=== PATIENT | female | born 1930 | race Caucasian/White ===

== ENCOUNTER → 2016-08-21 | Outpatient (CLI) | payer MEDICARE ==
[~2016-08-21] MED LIST: ASPIRIN81 M1 PO; BIOTIN1000 MC1 PO; CELEBREX100 MG PO; CRESTOR10 M1 PO; LISINOPRIL40 MG PO; METFORMIN500 MG PO; METHOTREXATE2.5 M1 PO; NATURE'S BLEND F1 MG PO; VITAMIN D31000 IU PO; ZANTAC 150150 MG PO
[2016-08-21 13:12] LABS: BASO % 0.3 % (0.0-1.0); EOS # 0.2 10*3/uL (0.0-0.4); HEMATOCRIT 37.3 % (37.0-47.0); LYMPH # 2.2 10*3/uL (1.3-4.4); LYMPH % 27.3 % (27.0-41.0); MEAN CELL VOLUME 92.1 fl (81.0-99.0); MEAN CORPUSCULAR HGB 29.6 pg (27.0-31.0); MEAN CORPUSCULAR HGB CONC 32.2 g/dl (33.0-37.0); MONO # 0.4 10*3/uL (0.1-1.0); MONO % 5.5 % (3.0-9.0); NEUT # 5.1 10*3/uL (2.3-7.9); NEUT % 63.6 % (47.0-73.0); PLATELET COUNT AUTOMATED 224 10*3/uL (130-400); RED BLOOD COUNT 4.05 10*6/uL (4.10-5.10); RED CELL DISTRI WIDTH 14.6 % (0-14.5)
== END | disposition home or self-care (01) ==
LOC: LAB 11:02
PROVIDERS: Obstetrics & Gynecology
DX: N81.11 Cystocele, midline (principal); N81.6 Rectocele; N81.2 Incomplete uterovaginal prolapse; R33.9 Retention of urine, unspecified

== ENCOUNTER 2016-08-28 03:39 | Inpatient (IN) | payer MEDICARE ==
[~2016-08-28] VITALS: Ht 160 cm; Wt 81.2 kg
[2016-08-28] VITALS (8 sets, daily range): BP systolic 108–160; BP diastolic 48–89
--- NOTE | ~2016-08-28 | O ---
[place], [place] OPERATIVE NOTE NAME: HERMAN YATES UNIT #: [id number] ROOM: 529 DOCTOR: HERNESTO VILCHIS MD BIRTHDATE: [birth year] DOS: 08/28/2016 PREOPERATIVE DIAGNOSES: Symptomatic glbyua-ug-pisgw degree cystocele and associated uterine prolapse, introital laxity and urinary retention. POSTOPERATIVE DIAGNOSES: Symptomatic tlbjai-wn-gszly degree cystocele and associated uterine prolapse, introital laxity and urinary retention. PROCEDURE: TVH A and P repair, uterosacral plication and right sacrospinous fixation with perineoplasty. SURGEON: Dr. Hernesto Vilchis and Dr. Spencer. ANESTHESIA: General. ESTIMATED BLOOD LOSS: 50-75 mL. REPLACEMENTS: IV fluids, Ancef, and Ofirmev, as well as Toradol at the end of the case. COMPLICATIONS: There were no complications. CONDITION: The patient's status to recovery was stable. OPERATIVE SUMMARY: The patient was taken to the operating room in supine position, general anesthesia, endotracheal intubation, lithotomy position, prepped and draped in routine manner. Solares was placed to straight drain. Our exam prior to initiating the surgery revealed that the primary laxity was a large cystocele and uterine descensus, the posterior vagina was not any more relaxed and a first degree rectocele. Once we had performed our examination, we grasped the cervix, injected it in a circumferential manner with 1% lidocaine with epinephrine and then made a circumferential incision displaced the bladder anteriorly and entered the anterior cul-de-sac without complication. We displaced the rectum posteriorly and entered the posterior cul-de-sac. Uterosacral ligaments and cardinal ligament pedicles were created and ligated with 0 Vicryl in transfixing manner followed by use of the LigaSure device with successive pedicles bilaterally, freeing up the uterus and cervix. We examined the internal pedicles carefully and noted them to be hemostatic. One fallopian tube was noted and was normal. The ovaries were not visualized or palpable. We then noting the stable sponge and instrument count, plicated the uterosacral ligaments with 2-0 Ethibond two interrupted sutures and then we reperitonealized with 2-0 Vicryl in a pursestring manner. We then closed the vaginal cuff with a series of interrupted 0 Vicryl mtfwdg-vz-frfoc sutures. We then made an incision perpendicular to the vaginal cuff incision up to a point just inferior to the urethral meatus and dissected the bladder and the vesicovaginal fascia free from the vaginal mucosa. We then with several layers of interrupted 2-0 Vicryl sutures, resupported the urethrovesical neck and the body of the bladder. We excised excess anterior vaginal mucosa and closed the anterior incision with a running locking 2-0 Vicryl suture. We then removed a small triangular shaped portion of essentially skin over the perineal area and then made an incision [place], [place] OPERATIVE NOTE NAME: HERMAN YATES UNIT #: [id number] ROOM: 529 DOCTOR: HERNESTO IVLCHIS MD BIRTHDATE: [birth year] perpendicular to this about two-thirds of the way up to the posterior vagina, again noting that the laxity posteriorly was much less than the one that had been noted anteriorly. Rectum and the rectovaginal fascia were dissected free from the vaginal mucosa and then we dissected over to the right ischial spine and placed a slightly more proximally an 0 Ethibond suture and affixed this to the top of the vagina bilaterally. With several interrupted 2-0 Vicryl sutures, we obliterated the remaining portion of the rectocele, then removed excess posterior vaginal mucosa and closed this incision down to the introitus with a running locking 2-0 Vicryl suture. We then using a cornelio type method for sacrospinous fixation suture, elevated the vagina very nicely. Once this was completed, we then completed the closure of the posterior vaginal midline incision to the introitus. We closed her perineal defect in 2 layers with 2-0 Vicryl as one would close a very superficial second degree midline episiotomy. Once these were all approximated, we examined the vaginal operative sites and noted excellent hemostasis. We placed Premarin vaginal cream and we placed one-inch iodoform packing. We then examined the rectum and noted it to be intact and the sacrospinous fixation suture in place. We then cleaned the patient off, took her out of lithotomy position, awakened, extubated, and transferred to recovery in satisfactory condition having had adequate and clear urine output throughout the case, having had stable vital signs, good hemostasis, and stable sponge and instrument count. HERNESTO VILCHIS MD CM:OPRECORD:OPERATIVE NOTE 1204 [id number] HERNESTO VILCHIS MD 08/28/16 1308 interface
--- NOTE | ~2016-08-28 | WRIGHTHP ---
[place], [place] PATIENT HISTORY AND PHYSICAL EXAM [id number] UN[facility] #: [id number] ROOM: DOCTOR: HERNESTO VILCHIS MD BIRTHDATE: [birth year] DOS: 08/28/2016 HISTORY OF PRESENT ILLNESS: This is a delightful 86-year-old white female who was seen 08/15/2016 following a visit for discussion in December 2015 per Surgery for vaginal repair and bladder repair. The patient had been seen as I said in December 2015 for vesicouterine prolapse. At that time, she had too much introital laxity to retain a pessary although we did try. She had come in then on 08/15 again complaining of similar complaints, but stating that these symptoms were worsening and she was having increasing urinary retention with trouble emptying the bladder. She is also noticing increased pressure in the pelvis and more protrusion for pelvic organs per her introitus. We extensively discussed the anatomic changes, her age, surgical correction, recovery, with risks, benefits, indications, potential complications, and alternatives. She did state understanding and stated that she did want to proceed with surgery. I made it very clear to her that there was absolutely no pressure to have anything done, but the patient was quite adamant about proceeding with repair. The patient stated that she just could not keep this up and wanted to have the problem fixed. Therefore, again TVH, A and P repair, uterosacral plication, right sacrospinous fixation and perineoplasty were reviewed, understanding stated and consent signed. PAST HISTORY: Reveals 4 pregnancies and 4 vaginal deliveries. She has never had and refuses a colonoscopy. She does have hypertension, high cholesterol, diabetes, rheumatoid arthritis and vitamin D deficiency. She has had a history of kidney stones removed. SOCIAL HISTORY: She does not smoke or drink. ALLERGIES: She states no known allergies. MEDICATIONS: She is taking a number of medications including Crestor 20 mg a half a tablet every other day for elevated cholesterol, Zantac 150 mg p.r.n., Celebrex 200 mg daily for the rheumatoid arthritis, metformin 500 mg daily for a very mild case of diabetes, methotrexate 2.5 mg 3 tablets per week for her rheumatoid arthritis, lisinopril 40 mg daily for her hypertension, vitamin D, baby aspirin, biotin and folic acid. REVIEW OF SYSTEMS: Otherwise stable. FAMILY HISTORY: Really is non-applicable to this particular situation, but her father is from leukemia and her mother , but for a questionable reason. PHYSICAL EXAMINATION: GENERAL: Reveals just a delightful white female in no apparent distress. VITAL SIGNS: Blood pressure is 136/80. She is 5 feet 2 inches, 171 pounds, BMI is 31.3 and her oxygen saturation is 99% on room air. HEENT: Stable. NECK: Stable. LUNGS: Stable. [place], [place] PATIENT HISTORY AND PHYSICAL EXAM NAME: HERMAN YATES UNIT #: [id number] ROOM: DOCTOR: HERNESTO VILCHIS MD BIRTHDATE: [birth year] CARDIAC: Stable. BREASTS: Stable. ABDOMEN: Normal. EXTREMITIES: Grossly intact. NEUROLOGIC: Grossly intact. GENITOURINARY: External genitalia were normal with significant introital laxity. She does have a second to third degree uterine prolapse with prominent second degree cystocele and a first degree rectocele. There is no significant pelvic organ enlargement. RECTAL: Negative. Stool heme test negative. ASSESSMENT AND PLAN: The patient with a significant and worsening utero bladder prolapse and to a much lesser degree rectocele and introital laxity as well. The patient is also becoming increasingly symptomatic from a discomfort standpoint and urinary retention. The patient also is not a candidate for pessary as this has been attempted without success. To that end, on 08/28/2016, the patient will undergo a TVH, A and P repair, uterosacral plication, right sacrospinous fixation and perineoplasty. HERNESTO VILCHIS MD CM:HISPHYS:PATIENT HISTORY AND PHYSICAL EXAMINATION [id number] RANDALL GUERRERO MD 08/22/16 0736 interface
--- NOTE | ~2016-08-28 | DS ---
[place], [place] DISCHARGE SUMMARY NAME: HERMAN YATES UNIT #: [id number] ROOM: 529 DOCTOR: HERNESTO VILCHIS MD BIRTHDATE: [birth year] DOS: 08/29/2016 HOSPITAL COURSE: A delightful 86-year-old white female was admitted on 08/28/2016 after having undergone a TVH, A and P repair, uterosacral plication, right sacrospinous fixation and perineoplasty for significant laxity issues as well as urinary retention. The surgery was uneventful. EBL was within normal limits. The patient's postop recovery has been excellent with her resumption of bodily function good ambulation, toleration of regular diet. No significant GI or complaints. No significant vaginal bleeding after removal of the packing and no issues after removal of a Solares catheter. The patient and I reviewed her operative procedures performed the relatively minimal blood loss and we discussed a good deal of time and reviewing the discharge instructions. The patient will follow up in about 6 weeks. She will increase her diet and activity as tolerated. She will contact us should she have any concerns or complications as we have outlined in the discharge instructions. She will use various methods to help with her help preventing constipation and she will use Percocet 5/325 one tablet p.o. q. 6 hours on a p.r.n. basis ____ with nonsteroidal anti-inflammatory agents on a p.r.n. basis. She will resume her home medications as she had been on prior to her admission ____ and had stated understanding to all the information provided and was discharged in satisfactory condition on 08/29/2016. HERNESTO VILCHIS MD CM:DISCHARG 0735 1202 HERNESTO VILCHIS MD 08/29/16 1203 interface
[2016-08-29] VITALS: BP 117/47
[2016-08-29 08:00] VITALS: BP 110/60
[2016-08-29 12:00] VITALS: BP 120/64
== END 2016-08-29 13:05 | disposition home or self-care (01) | DRG 743 ==
LOC: SDC 03:39 → 5E 08:20 → SDC 10:00 → 5E 08-29 13:05
PROC: 0US90ZZ Reposition Uterus, Open Approach (ICD-10-PCS; principal; 2016-08-28)
PROC: 0JQC0ZZ Repair Pelvic Region Subcutaneous Tissue and Fascia, Open Approach (ICD-10-PCS; principal; 2016-08-28)
PROC: 0WQN0ZZ Repair Female Perineum, Open Approach (ICD-10-PCS; principal; 2016-08-28)
PROC: 0USG0ZZ Reposition Vagina, Open Approach (ICD-10-PCS; principal; 2016-08-28)
PROC: 0UTC7ZZ Resection of Cervix, Via Natural or Artificial Opening (ICD-10-PCS; principal; 2016-08-28)
PROC: 0UT97ZZ Resection of Uterus, Via Natural or Artificial Opening (ICD-10-PCS; principal; 2016-08-28)
DX: N81.3 Complete uterovaginal prolapse (principal); E11.9 Type 2 diabetes mellitus without complications; M06.9 Rheumatoid arthritis, unspecified; I10 Essential (primary) hypertension; N80.0 Endometriosis of uterus; N72 Inflammatory disease of cervix uteri; R33.9 Retention of urine, unspecified; E78.00 Pure hypercholesterolemia, unspecified; Z87.442 Personal history of urinary calculi; Z80.6 Family history of leukemia

== ENCOUNTER 2018-12-30 19:36 | Inpatient (IN) | payer MEDICARE ==
[~2018-12-30] VITALS: Ht 160 cm; Wt 77.7 kg
--- NOTE | ~2018-12-30 | CON ---
[place], [place] REPORT OF CONSULTATION NAME: HERMAN YATES UNIT #: [id number] ROOM: 409 DOCTOR: RAJ JEAN MD BIRTHDATE: [birth year] DOS: 12/31/2018 REASON FOR CONSULTATION: Elevated troponin and chest pain. HISTORY OF PRESENT ILLNESS: The patient is an 88-year-old patient with history of diabetes, rheumatoid arthritis, hypertension, who presented to the Emergency Room for chest pain. Apparently, the patient developed some midsternal chest pain at rest at home around 6 in the evening and she was seen at a nurse clinic and was sent to the Emergency Room at [facility] and she was admitted to the hospital due to her chest pain and elevated troponin. Her pain is left-sided chest pain, no radiation, the pain gets worse with some coughing. No associated symptoms such as nausea, diaphoresis or vomiting. She took some aspirin at home without any help. She denies any palpitation or dizziness. No PND or orthopnea. No hemoptysis. No bladder or bowel symptoms, no neurologic symptoms. Other than yesterday, she denies any exertional chest pains or shortness of breath at home. REVIEW OF SYSTEMS: Ten systems negative except as mentioned above. PAST MEDICAL HISTORY: 1. Hypertension. 2. Acid reflux. 3. Dyslipidemia. 4. Diabetes type 2. 5. Rheumatoid arthritis. PAST SURGICAL HISTORY: History of hysterectomy. SOCIAL HISTORY: Does not smoke, does not drink, does not use illicit drugs. FAMILY HISTORY: Nil contributory due to her age. ALLERGIES: Reviewed. No known drug allergies. HOME MEDICATIONS: Reviewed. The pertinent cardiac medications include Crestor ____ mg every other day, lisinopril 40 mg and aspirin 81 mg. REVIEW OF THE DIAGNOSTIC TESTS: EKG shows sinus rhythm with incomplete right bundle branch block, lateral ST-T changes. CBC, chemistry reviewed. WBC count of 12,000, platelet 207,000. BUN 21, creatinine 1.19. Cardiac troponins are 1.67, 1.950, 1.620. IMPRESSION: 1. Non-ST elevation myocardial infarction. 2. Hypertension. 3. Diabetes type 2. 4. Acid reflux. 5. Dyslipidemia. 6. 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 7. Rheumatoid arthritis. [place], [place] REPORT OF CONSULTATION NAME: HERMAN YATES UNIT #: [id number] ROOM: 409 DOCTOR: MIRANDA ELDER,RAJ BIRTHDATE: [birth year] 8. Non-morbid obesity. RECOMMENDATIONS: Currently, she is chest pain free. Blood pressure and heart rate are stable, continue aspirin, beta-blockers and statins. 2D echo was ordered and I will review the 2D echo. Long discussion with the patient and her son, Car who is at bedside and due to her NSTEMI and CAD risk factors, medical therapy versus cardiac catheterization discussed and risks and benefits of the either approach was discussed at length. They would like to think about her cardiac catheterization and will let me know. The patient is also considering going to [place] for cardiac catheterization. They will let us know if she would like to proceed with cardiac catheterization, angioplasty and stent or bypass surgery if needed. If the patient develops refractory chest pain with the EKG changes, then she may need urgent cardiac catheterization. Continue her heparin, aspirin, beta-blockers and statins. The above recommendations discussed with the patient and her son, Car at bedside and all questions were answered. RAJ JEAN MD CM:CONSTR:REPORT OF CONSULTATION 35 01/01/19 1215 interface
--- NOTE | ~2018-12-30 | EKG ---
[place], [place] ELECTROCARDIOGRAM REPORT NAME: HERMAN YATES UNIT #: [id number] ROOM: 409 DOCTOR: MASON DRAFT REPORT BIRTHDATE: [birth year] [facility] Test Date: 2018-12-30 Test Time: 23:26:06 Pat Name: HERMAN YATES Department: Room: 409 Gender: F [employer] Tree Farm Worker: Neel Epstein : 1930 Requested By: VICKIE LOWERY Order Number: [id number] Reading MD: Caprice Stoner Measurements Intervals [place] Rate: 68 P: 29 TX: 181 QRS: 16 QRSD: 129 T: 175 QT: 462 QTc: 492 Interpretive Statements Sinus rhythm Multiple premature complexes, vent \T\ supraven Right bundle branch block Abnormal T, consider ischemia, lateral leads Electronically Signed On 01-01-2019 8:14:02 PDT by Caprice Stoner CM:EKGRPT:ELECTROCARDIOGRAM REPORT [id number] VICKIE FOREMAN DRAFT REPORT VICKIE LOWERY DO
--- NOTE | ~2018-12-30 | EKG ---
[place], [place] ELECTROCARDIOGRAM REPORT NAME: HERMAN YATES UNIT #: [id number] ROOM: 409 DOCTOR: MASON DRAFT REPORT BIRTHDATE: [birth year] [facility] Test Date: 2018-12-31 Test Time: 01:32:10 Pat Name: HERMAN YATES Department: Room: 409 Gender: F [employer] Web Developer: Neel Epstein : 1930 Requested By: VICKIE LOWERY Order Number: [id number] Reading MD: Caprice Stoner Measurements Intervals [place] Rate: 79 P: 40 [place]: 182 QRS: 14 QRSD: 123 T: 207 QT: 456 QTc: 523 Interpretive Statements Sinus rhythm Supraventricular bigeminy IVCD, consider atypical RBBB Abnormal T, consider ischemia, lateral leads Electronically Signed On 01-01-2019 8:15:01 PDT by Caprice Stoner CM:EKGRPT:ELECTROCARDIOGRAM REPORT [id number] VICKIE FOREMAN DRAFT REPORT VICKIE LOWERY DO
--- NOTE | ~2018-12-30 | EKG ---
[place], [place] ELECTROCARDIOGRAM REPORT NAME: HERMAN YATES UNIT #: [id number] ROOM: 409 DOCTOR: MASON DRAFT REPORT BIRTHDATE: [birth year] [facility] Test Date: 2018-12-30 Test Time: 19:41:03 Pat Name: HERMAN YATES Department: Room: 409 Gender: F Software Verification Engineer: : 1930 Requested By: VICKIE LOWERY Order Number: [id number] Reading MD: Caprice Stoner Measurements Intervals [place] Rate: 83 P: 36 [place]: 160 QRS: -24 QRSD: 128 T: 178 QT: 403 QTc: 474 Interpretive Statements Sinus rhythm Multiple premature complexes, vent \T\ supraven Right bundle branch block Probable lateral infarct, age indeterminate Electronically Signed On 01-01-2019 8:07:08 PDT by Caprice Stoner CM:EKGRPT:ELECTROCARDIOGRAM REPORT [id number] VICKIE FOREMAN DRAFT REPORT VICKIE LOWERY DO
[2018-12-30 19:44] VITALS: BP 129/63
[2018-12-30 19:54] LABS: BASO % 0.2 % (0.0-1.0); EOS # 0.1 10*3/uL (0.0-0.4); EOS % 1.3 % (1.0-4.0); HEMATOCRIT 36.8 % (37.0-47.0); HEMOGLOBIN 12.1 g/dl (12.0-16.0); LYMPH # 1.6 10*3/uL (1.3-4.4); LYMPH % 19.4 % (27.0-41.0); MEAN CELL VOLUME 95.8 fl (81.0-99.0); MEAN CORPUSCULAR HGB 31.5 pg (27.0-31.0); MEAN CORPUSCULAR HGB CONC 32.9 g/dl (33.0-37.0); MEAN PLATELET VOLUME 9.8 fl (9.6-12.3); MONO # 0.5 10*3/uL (0.1-1.0); MONO % 5.6 % (3.0-9.0); NEUT % 73.1 % (47.0-73.0); PLATELET COUNT AUTOMATED 198 10*3/uL (130-400); RED BLOOD COUNT 3.84 10*6/uL (4.10-5.10); WHITE BLOOD COUNT 8.2 10*3/uL (4.8-10.8)
[2018-12-30 20:04] LABS: ACT PARTIAL THROMBO TIME 23.1 SECONDS (20.0-32.1)
[2018-12-30 20:12] LABS: ALBUMIN 3.6 gm/dl (3.1-4.5); CREATININE 1.21 mg/dL (0.55-1.02); POTASSIUM 4.3 mmol/L (3.5-5.1); TOTAL PROTEIN 6.7 gm/dL (6.4-8.2)
[2018-12-30 20:15] LABS: TROPONIN I 1.67 ng/ml (<0.045)
[2018-12-30 20:54] VITALS: BP 111/42
[2018-12-30 22:45] VITALS: BP 113/47
--- NOTE | 2018-12-30 23:07 | NUR ---
DR. BRAR NOTIFIED OF PT'S TROPONIN OF 1.950. NOTIFY CARDIOLODY.
[2018-12-30] MEDS ORDERED: ROSUVASTATIN CAL5 MG PO (23:18)
--- NOTE | 2018-12-30 23:20 | NUR ---
ATTEMPTED TO REACH CARDIOLOGY REGARDING CONSULT AND ELEVATED TROPS. MESSAGE LEFT WITH ANSWERING SERVICE, AWAITING RETURN CALL
--- NOTE | 2018-12-30 23:28 | NUR ---
DR CORDOVA CONTACTED REGARDING CONSULT. ELEVATED TROPS REVIEWED. INFORMED PATIENT ON HEPARING DRIP
--- NOTE | 2018-12-30 23:30 | NUR ---
A 88, admitted to , under the services of ROSS Guevara DO with a diagnosis of ELEVATED TROPONIN. CHEST PAIN. Chief complaint is PAIN LEFT UPPER CHEST STARTING AT 1800. WENT TO [facility] AND WAS SENT TO ER. Patient arrived via bed from ER. Monitor applied. Initial assessment completed. Vital signs taken and recorded. ROSS GUEVARA DO / DR BRAR notified of admission to the unit. Orders received. See assessment for past medical history, medications and allergies. Patient and/or family oriented to unit. [facility] visitation policy reviewed. Clothing/patient valuable form completed. WINNIE FORTE
[2018-12-31] VITALS: BP 113/45
--- NOTE | 2018-12-31 02:05 | NUR ---
DR BRAR NOTIFIED OF CRITICAL TROP, TRENDING DOWN. HEPARIN DRIP INFUSING
[2018-12-31 02:30] VITALS: BP 130/62
[2018-12-31 06:11] LABS: BASO % 0.2 % (0.0-1.0); EOS % 0.3 % (1.0-4.0); HEMATOCRIT 37.5 % (37.0-47.0); HEMOGLOBIN 12.1 g/dl (12.0-16.0); LYMPH # 1.8 10*3/uL (1.3-4.4); LYMPH % 15.2 % (27.0-41.0); MEAN CELL VOLUME 95.9 fl (81.0-99.0); MEAN CORPUSCULAR HGB 30.9 pg (27.0-31.0); MEAN CORPUSCULAR HGB CONC 32.3 g/dl (33.0-37.0); MEAN PLATELET VOLUME 10.4 fl (9.6-12.3); MONO % 7.9 % (3.0-9.0); NEUT # 9.2 10*3/uL (2.3-7.9); NEUT % 76.1 % (47.0-73.0); PLATELET COUNT AUTOMATED 207 10*3/uL (130-400); RED BLOOD COUNT 3.91 10*6/uL (4.10-5.10); RED CELL DISTRI WIDTH 13.9 % (0-14.5)
[2018-12-31 06:27] LABS: ALBUMIN 3.7 gm/dl (3.1-4.5); CREATININE 1.19 mg/dL (0.55-1.02); FREE T4 1.19 ng/dl (0.76-1.46); POTASSIUM 4.4 mmol/L (3.5-5.1); TOTAL PROTEIN 6.8 gm/dL (6.4-8.2)
--- NOTE | 2018-12-31 06:30 | NUR ---
BSG 163. INSULIN HELD PATIENT IS NPO FOR CARDIOLOGY
[2018-12-31 06:32] LABS: THYROID STIM HORMONE (HS) 1.41 uIU/ml (0.358-4.75)
--- NOTE | 2018-12-31 07:00 | NUR ---
PTT 43.4. HEPARIN DRIP ADJUSTED PER POLICY. REPEAT PTT ORDERED. PATIENT REMAINS CHEST PAIN FREE
[2018-12-31 08:00] VITALS: BP 126/78
--- NOTE | 2018-12-31 08:28 | NUR ---
HERMAN YATES [id number] Please refer to the physician's history and physical for past medical history, comorbid conditions, and allergies. Diagnosis: ELEVATED TROPONIN CHEST PAIN Vargas Score: 16,AT RISK WOUND DESCRIPTIONS: Wound Number: 1 Location of the wound: right ashu Type of Wound: Traumatic Thickness: Full Size: 2.5cm x 1.5cm x 0.1cm Tunneling: None Undermining: none Sinus Tract: none Presence of Exudate: Serosanguineous Amount: Light Color: Red Odor: None Periwound Skin Appearance: Erythema Wound edges: approximated Pain (associated with wound): none at time of assessment How does patient state this happened? pt state she hit it on the corner of car door Surface the patient is resting on: Position Pro SKIN PREVENTION RECOMMENDATION: 1. Pressure redistribution support surface as appropriate 2. Elevate heels 3. Remove boots/TEDS every shift and reapply 4. Head of bed 30 degrees as tolerated 5. Assess nutrition and hydration 6. Manage moisture 7. Avoid the use of containment devices while in bed 8. Use absorptive products on surfaces limit layers of linens on bed 9. Turn and reposition every 1-2 hours in bed and every 1 hour in chair as tolerated 10. Weight shifts every 15 minutes while up in chair 11. Offloading with pillows or device to keep heels elevated off bed 12. Monitor skin at least every shift 13. Inspect under medical devices twice a day WOUND TREATMENT RECOMMENDATIONS: Full thickness guidelines: Cleanse right sahu with nss and apply sureprep around the wound therahoney to wound bed and cover with non-adherent dressing and lightly wrap with rolled gauze daily and prn for soiling.
--- NOTE | 2018-12-31 08:31 | NUR ---
Patient states she will care for this area at home when she returns like she has done in the past.
[2018-12-31 08:42] LABS: VITAMIN D, 25-HYDROXY 35.9 ng/mL (30-100)
--- NOTE | 2018-12-31 09:00 | NUR ---
Manager [employer] in to talk to patient. Patient states lives at home with son. There are few steps in the home. Physician: sumi corbett Pharmacy: [facility] services: none Patient's level of ADLs: INDEPENDENT Patient has working utilities: all working DME: none Follow-up physician's appointment after d/c: will be made by hospitalist nurse director upon discharge Does patient want to access PORTAL?: no Discharge plan discussed with patient, she lives at home with son, she states she is independent in adls and ambulation, she states she will return home when able, discussed with her VNA and she declines any services at this time case management will follow. DEANDRA LI
--- NOTE | 2018-12-31 10:26 | NUR ---
Dr. Ann given wound care recommendations and stated he will give them to Dr. Torrez.
--- NOTE | 2018-12-31 11:37 | NUR ---
Another Multi-Disciplinary Team meeting was held on 12/31/18, for the purpose of discharge planning. patient will return home in a couple of days, she continues to receive heparin iv drip, with cardiology consult DEANDRA LI
[2018-12-31 12:00] VITALS: BP 129/72
--- NOTE | 2018-12-31 13:20 | NUR ---
PTT WITHIN THERAPEUTIC RANGE. REPEAT ORDERES FOR THE AM, NO CHANGE NEEDED.
--- NOTE | 2018-12-31 14:30 | NUR ---
PATIENT STILL UNDECIDED FAR WHAT SHE WOULD LIKE TO DO TOMORROW (HEART CATH OR GO HOME ON MEDICATION). SHE IS WAITING TO TALK TO DAUGHTER AND WILL KEEP ME UPDATED.
[2018-12-31 16:00] VITALS: BP 109/70
[2018-12-31 20:00] VITALS: BP 134/70
--- NOTE | 2018-12-31 20:18 | NUR ---
1930 SITTING UP ON THE SIDE OF THE BED TALKING WITH VISITOR. ALERT AND PLEASANT. HEP GTT MAINTAINED. NO C/O'S CHEST PAIN OR DISCOMFORT VOICED. 1949 ALL TRANSFER PAPERS SIGNED. FAMILY MADE AWARE OF TIME OF TRANSFER TONIGHT AND BED ASSIGNMENT AT [facility].
--- NOTE | 2018-12-31 22:14 | NUR ---
[place] TO BE HERE BETWEEN 22:30 - 2300. HEPARIN GTT CONT. REMAINS WITHOUT C/O'S. CONDITION GUARDED.
--- NOTE | 2018-12-31 22:43 | NUR ---
REPORT GIVEN TO RN AT [facility]. PT TO GO TO CRITICAL CARE BED #7. ACCEPTING PHYSICIAN IS DR. FOLEY.
--- NOTE | 2018-12-31 23:14 | NUR ---
DISCHARGED TO [facility]. REPORT GIVEN. CONDITION STABLE.
== END 2018-12-31 23:14 | disposition short-term general hospital (02) | DRG 282 ==
LOC: ED 19:36 → EDHOLD 20:43 → 4E 20:43
PROVIDERS: Emergency Medicine; Internal Medicine; ADMIT Internal Medicine
DX: I21.4 Non-ST elevation (NSTEMI) myocardial infarction (principal); R74.8 Abnormal levels of other serum enzymes; E11.65 Type 2 diabetes mellitus with hyperglycemia; Z79.82 Long term (current) use of aspirin; Z90.710 Acquired absence of both cervix and uterus; M06.9 Rheumatoid arthritis, unspecified; E78.5 Hyperlipidemia, unspecified; I10 Essential (primary) hypertension; K21.9 Gastro-esophageal reflux disease without esophagitis; E87.8 Other disorders of electrolyte and fluid balance, not elsewhere classified; N18.3 Chronic kidney disease, stage 3 (moderate); E11.22 Type 2 diabetes mellitus with diabetic chronic kidney disease; E66.01 Morbid (severe) obesity due to excess calories; Z84.89 Family history of other specified conditions; Z80.8 Family history of malignant neoplasm of other organs or systems; Z68.30 Body mass index [BMI] 30.0-30.9, adult; Z79.84 Long term (current) use of oral hypoglycemic drugs

== ENCOUNTER → 2021-09-16 | Outpatient (CLI) | payer MEDICARE ==
[~2021-09-16] MED LIST changes: +ELIQUIS2.5 M1 PO; +HYDROCODONE-AC1 EAC1 PO; +Humalog SQ; +LISINOPRIL5 MG PO; +Lopressor25 MG PO; +ROSUVASTATIN CAL5 MG PO; +VITAMIN C500 M4 PO; +VITAMIN D350 MC2 PO
== END | disposition home or self-care (01) ==
LOC: ORTHO 01:24
PROVIDERS: ATTEND Orthopaedic Surgery
DX: S72.032A Displaced midcervical fracture of left femur, initial encounter for closed fracture (principal); X58.XXXA Exposure to other specified factors, initial encounter; Y93.89 Activity, other specified; Y92.89 Other specified places as the place of occurrence of the external cause; Y99.8 Other external cause status

== ENCOUNTER → 2021-10-28 | Outpatient (CLI) | payer MEDICARE | END | disposition home or self-care (01) | LOC: ORTHO 01:26 | PROVIDERS: ATTEND Orthopaedic Surgery | DX: S72.032D Displaced midcervical fracture of left femur, subsequent encounter for closed fracture with routine healing (principal); I70.202 Unspecified atherosclerosis of native arteries of extremities, left leg; X58.XXXD Exposure to other specified factors, subsequent encounter ==

== ENCOUNTER → 2022-02-08 | Outpatient (CLI) | payer MEDICARE ==
[2022-02-07 11:09] LABS: HEMATOCRIT 26.2 % (37.0-47.0); MEAN CELL VOLUME 88.2 fl (81.0-99.0); MEAN CORPUSCULAR HGB 26.3 pg (27.0-31.0); MEAN CORPUSCULAR HGB CONC 29.8 g/dl (33.0-37.0); MEAN PLATELET VOLUME 9.6 fl (9.6-12.3); RED BLOOD COUNT 2.97 10*6/uL (4.10-5.10); RED CELL DISTRI WIDTH 17.5 % (0-14.5); WHITE BLOOD COUNT 7.8 10*3/uL (4.8-10.8)
[~2022-02-08] MED LIST changes: +IRON325 M1 PO; +PROTONIX20 MG PO
[2022-02-08 08:30] VITALS: BP 107/65
[2022-02-08 09:05] VITALS: BP 121/54
[2022-02-08 10:05] VITALS: BP 119/56
[2022-02-08 10:35] VITALS: BP 138/64
[2022-02-08 11:05] VITALS: BP 141/64
[2022-02-08 12:07] LABS: BASO % 0.4 % (0.0-1.0); EOS # 0.2 10*3/uL (0.0-0.4); HEMATOCRIT 26.6 % (37.0-47.0); MEAN CORPUSCULAR HGB 27.4 pg (27.0-31.0); MEAN CORPUSCULAR HGB CONC 30.8 g/dl (33.0-37.0); MEAN PLATELET VOLUME 10.7 fl (9.6-12.3); MONO # 0.6 10*3/uL (0.1-1.0); NEUT # 5.4 10*3/uL (2.3-7.9); NEUT % 65.9 % (47.0-73.0); NUCLEATED RED BLOOD CELL 0.2 % (0.0-0.0); PLATELET COUNT AUTOMATED 277 10*3/uL (130-400); RED BLOOD COUNT 2.99 10*6/uL (4.10-5.10); WHITE BLOOD COUNT 8.1 10*3/uL (4.8-10.8)
== END | disposition home or self-care (01) ==
LOC: TRNFUSION 01:06
PROVIDERS: ATTEND Physician Assistant
DX: D64.9 Anemia, unspecified (principal); I10 Essential (primary) hypertension; E11.9 Type 2 diabetes mellitus without complications; M19.90 Unspecified osteoarthritis, unspecified site; K21.9 Gastro-esophageal reflux disease without esophagitis